=== PATIENT | male | born 1975 | race Hispanic/Latino ===

== ENCOUNTER 2019-06-05 08:16 | Emergency (ER) | payer SELFPAY ==
[2019-06-05] MEDS ORDERED: Proparacaine 0.5% Opth 15 ML BOT ONE (08:23)
[2019-06-05] MEDS ORDERED: Fluorescein Opthalmic Strip ONE (08:23)
[2019-06-05] MEDS ORDERED: Adacel (T-DAP) 0.5 ML SYRINGE ONE (08:33)
== END 2019-06-05 08:53 | disposition home or self-care (01) ==
LOC: ERS 08:16
DX: S05.02XA Injury of conjunctiva and corneal abrasion without foreign body, left eye, initial encounter (principal); I10 Essential (primary) hypertension; X58.XXXA Exposure to other specified factors, initial encounter
CPT/HCPCS: 90471; 90715; 99283